=== PATIENT | female | born 1970 | race Hispanic/Latino ===

== ENCOUNTER 2018-03-20 20:26 | Emergency (ER) | payer BC ==
[2018-03-20 21:03] LABS: #Basophils 0.1 thou/uL (0.0-0.2); #Eosinphils 0.1 thou/uL (0.0-0.7); #Lymphocytes 2.7 thou/uL (1.20-3.40); #Monocytes 0.4 thou/uL (0.11-0.59); #Neutrophils 4.1 thou/uL (1.40-6.50); %Basophils 1.1 % (0.0-1.0); %Lymphocytes 36.8 % (21.0-51.0); %Monocytes 5.2 % (0.0-10.0); Mean Corpuscular HGB CONC 28.8 g/dL (32.0-36.0); Mean Corpuscular Hemoglobin 18.3 pg (27.0-31.0); Mean Corpuscular Volume 63.6 fL (78.0-98.0); Mean Platelet Volume 6.1 fL (7.4-10.4); Platelet Count 288 thou/uL (130-400); RBC Distribution Width 17.3 % (11.5-14.5); Red Blood Cell (RBC) Count 4.93 mill/uL (4.20-5.40); White Blood Cell (WBC) Count 7.4 thou/uL (4.8-10.8)
[2018-03-20 21:23] LABS: ALT (SGPT) 11 U/L (8-55); AST (SGOT) 25 U/L (5-34); Albumin 4.2 g/dL (3.5-5.0); Alkaline Phosphatase 71 U/L (40-150); Anion Gap 16 mmol/L (10-20); BUN (Urea Nitrogen) 12 mg/dL (7.0-18.7); Bilirubin, Total 0.5 mg/dL (0.2-1.2); Calc. Creatinine Clearance 0 mL/min (70-130); Calcium 9.6 mg/dL (7.8-10.44); Carbon Dioxide 24 mmol/L (22-29); Chloride 103 mmol/L (98-107); Estimated GFR-MDRD 79; Globulin 4.4 g/dL (2.4-3.5); Glucose 151 mg/dL (70-105); Potassium 3.3 mmol/L (3.5-5.1); Protein, Total 8.6 g/dL (6.0-8.3); Sodium 140 mmol/L (136-145)
[2018-03-20] MEDS ORDERED: Potassium Chloride 20 MEQ TAB ONE (22:12)
== END 2018-03-20 22:23 | disposition home or self-care (01) ==
LOC: ERS 20:26
DX: E87.6 Hypokalemia (principal); E11.9 Type 2 diabetes mellitus without complications; E78.5 Hyperlipidemia, unspecified; I10 Essential (primary) hypertension; Z79.899 Other long term (current) drug therapy; Z79.84 Long term (current) use of oral hypoglycemic drugs; Z79.82 Long term (current) use of aspirin
CPT/HCPCS: 36415; 83036; 84132; 84443; 85025; 93005

== ENCOUNTER 2022-06-28 16:25 | Inpatient (IN) | payer BC ==
[~2022-06-28 16:25] MED LIST: Iopamidol-370 76% 500 ML 1 ML ONE
[2022-06-28 17:05] LABS: Hemoglobin 12.8 g/dL (12.0-16.0); Mean Corpuscular HGB CONC 34.4 g/dL (32.0-36.0); Mean Corpuscular Hemoglobin 28.2 pg (27.0-31.0); Mean Platelet Volume 9.4 fL (7.4-10.4); Platelet Count 166 10x3/uL (130-400); RBC Distribution Width 12.7 % (11.5-14.5); Red Blood Cell (RBC) Count 4.55 mill/uL (4.20-5.40); White Blood Cell (WBC) Count 10.7 10x3/uL (4.8-10.8)
[2022-06-28 17:14] LABS: Prothrombin Time 13.9 sec (12.0-14.7)
[2022-06-28 17:15] LABS: PTT 25.8 sec (22.9-36.1)
[2022-06-28 17:21] LABS: Band 8 % (5-11); Lymphocytes 7 % (21-51); MDiff Complete? YES; Monocytes 4 % (0-10); Neutrophil 81 % (42-75); Platelet Morphology Comment Appears Adequate; RBC Morphology Normal
[2022-06-28 17:29] LABS: ALT (SGPT) 15 U/L (8-55); AST (SGOT) 16 U/L (5-34); Albumin 3.9 g/dL (3.5-5.0); Alkaline Phosphatase 111 U/L (40-110); Anion Gap 17 mmol/L (10-20); BUN (Urea Nitrogen) 11 mg/dL (9.8-20.1); Bilirubin, Total 1.4 mg/dL (0.2-1.2); Calc. Creatinine Clearance 0 mL/min (70-130); Calcium 8.9 mg/dL (7.8-10.44); Carbon Dioxide 25 mmol/L (22-29); Chloride 99 mmol/L (98-107); Estimated GFR 78; Globulin 4.2 g/dL (2.4-3.5); Glucose 275 mg/dL (70-105); Potassium 2.8 mmol/L (3.5-5.1); Protein, Total 8.1 g/dL (6.0-8.3); Sodium 138 mmol/L (136-145)
[2022-06-28 17:48] LABS: CKMB 0.5 ng/mL (0-6.6)
[2022-06-28] MEDS ORDERED: Ondansetron PF 4 MG/2 ML Vial ONE (18:14)
[2022-06-28] MEDS ORDERED: Morphine 4 MG/ML VIAL ONE (18:14)
[2022-06-28] MEDS ORDERED: Ketorolac Tromethamine 30 MG/ML VIAL ONE (18:49)
[2022-06-28] MEDS ORDERED: cefTRIAXone\\ROCEPHIN 2 GM VIAL ONE (19:22)
[2022-06-28] MEDS ORDERED: hydrALAZINE 20 MG/ML VIAL ONE (19:22)
[2022-06-28] MEDS ORDERED: Acetaminophen 325 MG TAB PO PRN (20:16)
[2022-06-28 20:17] LABS: SARS-CoV-2 NAA Rapid Test Not Detected (NotDetected)
[2022-06-28 20:22] LABS: Magnesium 1.2 mg/dL (1.6-2.6)
[2022-06-28] MEDS ORDERED: Magnesium 2 GM/50 ML BAG (IN WATER) ONE (20:32)
[2022-06-28 20:35] LABS: Bacteria/HPF None Seen HPF (None Seen); Bilirubin Negative (Negative); Blood, Urine Trace (Negative); Clarity Clear (Clear); Glucose, Urine (Dipstick) 50 mg/dL (Negative); Ketone, Urine Negative (Negative); Leukocyte 25 Leu/uL (Negative); Nitrite Negative (Negative); Protein, Urine (Dipstick) 100 mg/dL (Neg-Trace); Specific Gravity, Urine 1.021 (1.002-1.036); Squamous Epithelial None Seen HPF (0-3); Urobilinogen Normal mg/dL (Less than 2); pH, Urine 7.5 (5.0-9.0)
[2022-06-28] MEDS ORDERED: Potassium Chloride 20 MEQ TAB ONE (20:37)
[2022-06-28] MEDS ORDERED: Potassium Chloride 20 MEQ/100 ML PREMIX BAG ONE (20:37)
[2022-06-28] MEDS ORDERED: HumaLOG 300 UNITS/3 ML VIAL SC PRN (21:01)
[2022-06-28] MEDS ORDERED: Dextrose 5% in Water 1,000 ML IV PRN (21:01)
[2022-06-28] MEDS ORDERED: Dextrose 50% Abboject 50 ML SYRINGE SLOW IVP PRN (21:01)
[2022-06-28 21:39] LABS: Troponin I 0.063 ng/mL (< 0.028)
[2022-06-28] MEDS ORDERED: Amlodipine 5 MG TAB PO SCH (22:45)
[2022-06-28] MEDS ORDERED: Fioricet 325/50/40 mg Tablet PO PRN (22:46)
[2022-06-28 22:51] VITALS: BMI 28.0
[2022-06-28] MEDS: Ondansetron PF 4 MG/2 ML Vial IVP PRN (22:58)
[2022-06-28] MEDS: Morphine 4 MG/ML VIAL SLOW IVP PRN (22:59)
[2022-06-29 00:35] LABS: Hemoglobin A1c 9.5 % (4.0-6.0)
[2022-06-29 00:52] LABS: Troponin I 0.047 ng/mL (< 0.028)
[2022-06-29] MEDS ORDERED: Ketorolac Tromethamine 30 MG/ML VIAL IVP SCH (01:00)
[2022-06-29] MEDS ORDERED: Electrolyte Replacement Protocol 1 EACH FS SCH (03:45)
[2022-06-29] MEDS ORDERED: Sodium Chloride 0.9% 1,000 ML IV SCH ×2 (04:30→05:45)
[2022-06-29 04:53] LABS: Hemoglobin 12.4 g/dL (12.0-16.0); Mean Corpuscular HGB CONC 34.6 g/dL (32.0-36.0); Mean Corpuscular Hemoglobin 28.7 pg (27.0-31.0); Mean Corpuscular Volume 82.9 fl (78.0-98.0); Platelet Count 162 10x3/uL (130-400); RBC Distribution Width 12.8 % (11.5-14.5); White Blood Cell (WBC) Count 13.6 10x3/uL (4.8-10.8)
[2022-06-29 05:13] LABS: Anion Gap 13 mmol/L (10-20); BUN (Urea Nitrogen) 12 mg/dL (9.8-20.1); Calc. Creatinine Clearance 68 mL/min (70-130); Calcium 8.4 mg/dL (7.8-10.44); Carbon Dioxide 27 mmol/L (22-29); Cardiac Risk 3.5 (Less than 4.5); Chloride 97 mmol/L (98-107); Cholesterol 140 mg/dl (< 200 Desired); Estimated GFR 58; Glucose 341 mg/dL (70-105); HDL Cholesterol 40 mg/dL (>60 Neg Risk); LDL Cholesterol, Calculated 76 mg/dL; Magnesium 1.6 mg/dL (1.6-2.6); Sodium 134 mmol/L (136-145); Triglycerides 120 mg/dL (Less than 150)
[2022-06-29 05:21] LABS: Potassium 2.6 mmol/L (3.5-5.1)
[2022-06-29] MEDS ORDERED: Potassium Chloride 20 MEQ TAB PO SCH ×2 (05:30→06:00)
[2022-06-29 05:39] LABS: Band 6 % (5-11); Lymphocytes 4 % (21-51); MDiff Complete? YES; Monocytes 1 % (0-10); Neutrophil 89 % (42-75); Platelet Morphology Comment Appears Adequate; RBC Morphology Normal
[2022-06-29] MEDS: Cefepime 1 GM in Sodium Chloride 0.9% 100 ML IVPB SCH ×2 (05:45→17:15)
[2022-06-29] MEDS ORDERED: Magnesium 2 GM/50 ML(in water) 2 GM in Premix Bag 1 BAG IVPB SCH ×2 (06:00→08:00)
[2022-06-29] MEDS: Ondansetron PF 4 MG/2 ML Vial IVP PRN ×2 (06:09→13:45)
[2022-06-29] MEDS: Potassium Chloride 20 MEQ in Premix Bag 1 BAG IVPB SCH ×2 (06:16→10:48)
[2022-06-29] MEDS: HumaLOG 300 UNITS/3 ML VIAL SC PRN ×3 (06:27→18:13)
[2022-06-29] MEDS ORDERED: FLU VACC QS2022-23(6MOS UP)/PF 60 MCG/0.5 ML SYRINGE IM ONE (09:00)
[2022-06-29] MEDS ORDERED: Amlodipine 5 MG TAB PO SCH (09:00)
[2022-06-29] MEDS: Bacitracin 1 PK TOP SCH ×3 (11:02→20:36)
[2022-06-29 11:14] LABS: Potassium 3.5 mmol/L (3.5-5.1)
[2022-06-29] MEDS: Morphine 4 MG/ML VIAL SLOW IVP PRN (13:45)
[2022-06-29] MEDS ORDERED: hydrALAZINE 20 MG/ML VIAL SLOW IVP PRN (14:58)
[2022-06-29] MEDS ORDERED: NIFEdipine XL 60 MG TAB PO SCH (15:15)
[2022-06-29] MEDS: Potassium Chloride 20 MEQ in Lactated Ringer's 1,000 ML IV SCH (17:15)
[2022-06-29] MEDS: Acetaminophen 500 MG TAB PO SCH ×2 (17:16→20:35)
[2022-06-29] MEDS: Insulin Glargine 30 UNITS/0.3 ML VIAL SC SCH (20:35)
[2022-06-30] MEDS: Ondansetron PF 4 MG/2 ML Vial IVP PRN ×2 (02:48→17:20)
[2022-06-30] MEDS: Potassium Chloride 20 MEQ in Lactated Ringer's 1,000 ML IV SCH ×3 (03:51→20:31)
[2022-06-30] MEDS: Morphine 4 MG/ML VIAL SLOW IVP PRN (04:05)
[2022-06-30] MEDS ORDERED: Promethazine HCl 12.5 MG in Sodium Chloride 0.9% 100 ML IVPB SCH (04:45)
[2022-06-30 05:15] LABS: #Lymphocytes 0.8 thou/uL (1.20-3.40); #Monocytes 0.4 thou/uL (0.11-0.59); %Basophils 0.2 % (0.0-1.0); %Eosinophils 0.4 % (0.0-10.0); %Lymphocytes 9.1 % (21.0-51.0); %Monocytes 5.3 % (0.0-10.0); Hemoglobin 11.7 g/dL (12.0-16.0); Mean Corpuscular HGB CONC 33.5 g/dL (32.0-36.0); Mean Corpuscular Hemoglobin 28.4 pg (27.0-31.0); Mean Platelet Volume 9.9 fL (7.4-10.4); Platelet Count 144 10x3/uL (130-400); RBC Distribution Width 12.7 % (11.5-14.5); Red Blood Cell (RBC) Count 4.13 mill/uL (4.20-5.40); White Blood Cell (WBC) Count 8.2 10x3/uL (4.8-10.8)
[2022-06-30 05:35] LABS: Anion Gap 10 mmol/L (10-20); BUN (Urea Nitrogen) 13 mg/dL (9.8-20.1); Calc. Creatinine Clearance 82 mL/min (70-130); Calcium 8.6 mg/dL (7.8-10.44); Carbon Dioxide 26 mmol/L (22-29); Chloride 101 mmol/L (98-107); Estimated GFR 73; Glucose 249 mg/dL (70-105); Magnesium 1.8 mg/dL (1.6-2.6); Potassium 3.2 mmol/L (3.5-5.1); Sodium 134 mmol/L (136-145)
[2022-06-30] MEDS: cefTRIAXone\\ROCEPHIN 2 GM in Sodium Chloride 0.9% 100 ML IVPB SCH (06:26)
[2022-06-30] MEDS: HumaLOG 300 UNITS/3 ML VIAL SC PRN ×3 (07:38→17:22)
[2022-06-30] MEDS ORDERED: Potassium Chloride 20 MEQ TAB PO SCH (08:00)
[2022-06-30] MEDS ORDERED: Magnesium 2 GM/50 ML(in water) 2 GM in Premix Bag 1 BAG IVPB SCH (08:00)
[2022-06-30] MEDS: Acetaminophen 500 MG TAB PO SCH ×3 (08:49→20:30)
[2022-06-30] MEDS: Bacitracin 1 PK TOP SCH ×3 (08:51→20:31)
[2022-06-30] MEDS: NIFEdipine XL 60 MG TAB PO SCH (08:52)
[2022-06-30] MEDS: oxyCODONE 5 MG TAB PO PRN (17:20)
[2022-06-30] MEDS: Insulin Glargine 30 UNITS/0.3 ML VIAL SC SCH (20:30)
[2022-07-01 04:20] LABS: #Lymphocytes 1.4 thou/uL (1.20-3.40); #Monocytes 0.4 thou/uL (0.11-0.59); #Neutrophils 2.5 thou/uL (1.40-6.50); %Basophils 0.6 % (0.0-1.0); %Lymphocytes 31.6 % (21.0-51.0); %Monocytes 9.9 % (0.0-10.0); %Neutrophils 56.9 % (42.0-75.0); Hemoglobin 11.7 g/dL (12.0-16.0); Mean Corpuscular HGB CONC 33.9 g/dL (32.0-36.0); Mean Corpuscular Hemoglobin 28.8 pg (27.0-31.0); Mean Corpuscular Volume 85.2 fl (78.0-98.0); Mean Platelet Volume 9.4 fL (7.4-10.4); Platelet Count 141 10x3/uL (130-400); RBC Distribution Width 12.7 % (11.5-14.5); Red Blood Cell (RBC) Count 4.05 mill/uL (4.20-5.40); White Blood Cell (WBC) Count 4.4 10x3/uL (4.8-10.8)
[2022-07-01 04:44] LABS: Anion Gap 11 mmol/L (10-20); BUN (Urea Nitrogen) 12 mg/dL (9.8-20.1); Calc. Creatinine Clearance 93 mL/min (70-130); Calcium 8.6 mg/dL (7.8-10.44); Carbon Dioxide 26 mmol/L (22-29); Chloride 105 mmol/L (98-107); Estimated GFR 84; Glucose 144 mg/dL (70-105); Magnesium 1.9 mg/dL (1.6-2.6); Potassium 3.4 mmol/L (3.5-5.1); Sodium 139 mmol/L (136-145)
[2022-07-01] MEDS: oxyCODONE 5 MG TAB PO PRN (05:21)
[2022-07-01] MEDS: cefTRIAXone\\ROCEPHIN 2 GM in Sodium Chloride 0.9% 100 ML IVPB SCH (05:41)
[2022-07-01] MEDS ORDERED: Magnesium 2 GM/50 ML(in water) 2 GM in Premix Bag 1 BAG IVPB SCH (08:00)
[2022-07-01] MEDS ORDERED: Potassium Chloride 20 MEQ TAB PO SCH ×2 (08:00→10:00)
[2022-07-01] MEDS: Acetaminophen 500 MG TAB PO SCH (08:55)
[2022-07-01] MEDS: Bacitracin 1 PK TOP SCH (08:55)
[2022-07-01] MEDS: Ondansetron PF 4 MG/2 ML Vial IVP PRN (08:56)
[2022-07-01] MEDS: NIFEdipine XL 60 MG TAB PO SCH (08:56)
[2022-07-01] MEDS: Potassium Chloride 20 MEQ in Lactated Ringer's 1,000 ML IV SCH (08:57)
[2022-07-01] MEDS: HumaLOG 300 UNITS/3 ML VIAL SC PRN (09:11)
[2022-07-01 11:55] VITALS: BP 146/74; TEMP 98.8
== END 2022-07-01 14:00 | disposition home or self-care (01) | DRG 872 ==
LOC: ERS 16:25 → 2NO 20:17 → OBSVTOIN 06-29 15:10
PROVIDERS: ADMIT Internal Medicine; ATTEND Internal Medicine
DX: A41.51 Sepsis due to Escherichia coli [E. coli] (principal); N10 Acute pyelonephritis; Z20.822 Contact with and (suspected) exposure to COVID-19; I10 Essential (primary) hypertension; E11.9 Type 2 diabetes mellitus without complications; E87.6 Hypokalemia; E83.42 Hypomagnesemia; E78.5 Hyperlipidemia, unspecified; E78.00 Pure hypercholesterolemia, unspecified; N83.202 Unspecified ovarian cyst, left side; D25.9 Leiomyoma of uterus, unspecified; B96.20 Unspecified Escherichia coli [E. coli] as the cause of diseases classified elsewhere
CPT/HCPCS: 36415; 36416; 71045; 74177; 76856; 80048; 80053; 80061; 81003; 81015; 82553; 83036; 83605; 83735; 83880; 84484; 85025; 85610; 85730; 87040; 87077; 87086; 87149; 87186; 93005; 93976; 96361; 96365; 96367; 96372; 96375; 96376; G0378; J0360; J0692; J0696; J1650; J1815; J1885; J2270; J2405; J2550; J3475; J3480; J3490; J7050; J7120; Q9967

== ENCOUNTER 2022-07-17 14:55 | Inpatient (IN) | payer BC ==
[2022-07-17] MEDS ORDERED: Ibuprofen 800 MG TAB ONE (15:51)
[2022-07-17] MEDS ORDERED: HYDROcodone/Acetaminophen 5/325 mg Tablet ONE (15:51)
[2022-07-17 16:28] LABS: #Lymphocytes 0.9 thou/uL (1.20-3.40); #Monocytes 0.2 thou/uL (0.11-0.59); #Neutrophils 7.6 thou/uL (1.40-6.50); %Basophils 0.2 % (0.0-1.0); %Eosinophils 0.1 % (0.0-10.0); %Lymphocytes 9.8 % (21.0-51.0); %Monocytes 2.4 % (0.0-10.0); %Neutrophils 87.6 % (42.0-75.0); Hemoglobin 12.2 g/dL (12.0-16.0); Mean Corpuscular HGB CONC 32.9 g/dL (32.0-36.0); Mean Corpuscular Hemoglobin 27.9 pg (27.0-31.0); Mean Corpuscular Volume 84.9 fl (78.0-98.0); Mean Platelet Volume 8.8 fL (7.4-10.4); Platelet Count 209 10x3/uL (130-400); RBC Distribution Width 12.4 % (11.5-14.5); Red Blood Cell (RBC) Count 4.38 mill/uL (4.20-5.40); White Blood Cell (WBC) Count 8.7 10x3/uL (4.8-10.8)
[2022-07-17] MEDS ORDERED: CEFAZOLIN 2 GM in Sodium Chloride 0.9% 100 ML IVPB SCH (16:30)
[2022-07-17 16:34] LABS: PTT 29.8 sec (22.9-36.1); Prothrombin Time 13.2 sec (12.0-14.7)
[2022-07-17] MEDS ORDERED: Ipratropium/Albuterol 3 ML NEB NEB PRN (16:39)
[2022-07-17] MEDS ORDERED: Ondansetron PF 4 MG/2 ML Vial IVP PRN (16:39)
[2022-07-17] MEDS ORDERED: Sodium Chloride 0.9% 1,000 ML IV SCH (16:45)
[2022-07-17] MEDS ORDERED: traMADol HCl 50 MG TAB PO PRN (16:46)
[2022-07-17] MEDS ORDERED: Morphine 2 MG/ML VIAL SLOW IVP PRN (16:48)
[2022-07-17 16:49] LABS: ALT (SGPT) 14 U/L (8-55); AST (SGOT) 18 U/L (5-34); Albumin 3.9 g/dL (3.5-5.0); Alkaline Phosphatase 76 U/L (40-110); Anion Gap 10 mmol/L (10-20); BUN (Urea Nitrogen) 10 mg/dL (9.8-20.1); Bilirubin, Total 0.8 mg/dL (0.2-1.2); Calc. Creatinine Clearance 0 mL/min (70-130); Carbon Dioxide 28 mmol/L (22-29); Chloride 106 mmol/L (98-107); Estimated GFR 98; Glucose 126 mg/dL (70-105); Potassium 2.7 mmol/L (3.5-5.1); Protein, Total 7.9 g/dL (6.0-8.3); Sodium 141 mmol/L (136-145)
[2022-07-17] MEDS ORDERED: Dextrose 50% Abboject 50 ML SYRINGE SLOW IVP PRN (17:17)
[2022-07-17] MEDS ORDERED: Insulin Regular 300 UNITS/3 ML VIAL SC PRN (17:17)
[2022-07-17] MEDS ORDERED: Dextrose 5% in Water 1,000 ML IV PRN (17:17)
[2022-07-17] MEDS ORDERED: Potassium Chloride 20 MEQ TAB ONE (17:47)
[2022-07-17] MEDS ORDERED: HYDROmorphone 0.5 MG/0.5 ML SYRINGE ONE (17:48)
[2022-07-17] MEDS ORDERED: Morphine 4 MG/ML VIAL ONE (17:48)
[2022-07-17] MEDS ORDERED: Ketorolac Tromethamine 30 MG/ML VIAL ONE (17:48)
[2022-07-17] MEDS ORDERED: Labetalol HCl 100 MG/20 ML VIAL SLOW IVP PRN (18:09)
[2022-07-17] MEDS ORDERED: Labetalol HCl 100 MG/20 ML VIAL ONE (18:14)
[2022-07-17] MEDS ORDERED: Amlodipine 5 MG TAB ONE (18:14)
[2022-07-17 19:20] LABS: SARS-CoV-2 NAA Rapid Test Not Detected (NotDetected)
[2022-07-17 21:24] VITALS: BMI 28.5
[2022-07-17] MEDS: Senokot S 8.6-50 MG TAB PO SCH (21:39)
[2022-07-17] MEDS: Famotidine 20 MG TAB PO SCH (21:39)
[2022-07-17] MEDS: Gabapentin 300 MG CAP PO SCH (21:39)
[2022-07-17] MEDS: Cyclobenzaprine 10 MG TAB PO PRN (21:39)
[2022-07-17] MEDS: traMADol HCl 50 MG TAB PO SCH (21:42)
[2022-07-17] MEDS: Lactated Ringer's 1,000 ML IV SCH (21:42)
[2022-07-17] MEDS: Acetaminophen 500 MG TAB PO SCH (21:42)
[2022-07-17] MEDS: Amlodipine 5 MG TAB PO SCH (22:54)
[2022-07-18] MEDS: Acetaminophen 500 MG TAB PO SCH ×5 (00:21→23:38)
[2022-07-18] MEDS: traMADol HCl 50 MG TAB PO SCH ×5 (00:21→23:38)
[2022-07-18] MEDS: Lactated Ringer's 1,000 ML IV SCH (05:47)
[2022-07-18] MEDS: Gabapentin 300 MG CAP PO SCH ×3 (07:47→21:05)
[2022-07-18] MEDS: Potassium Chloride 20 MEQ in Premix Bag 1 BAG IVPB SCH ×2 (07:47→13:12)
[2022-07-18] MEDS: Famotidine 20 MG TAB PO SCH ×2 (07:48→21:05)
[2022-07-18] MEDS: Polyethylene Glycol 3350 17 GM Packet PO SCH (08:12)
[2022-07-18] MEDS: Senokot S 8.6-50 MG TAB PO SCH ×2 (08:13→21:06)
[2022-07-18 08:35] LABS: Anion Gap 11 mmol/L (10-20); BUN (Urea Nitrogen) 9 mg/dL (9.8-20.1); Calc. Creatinine Clearance 111 mL/min (70-130); Calcium 8.5 mg/dL (7.8-10.44); Carbon Dioxide 28 mmol/L (22-29); Chloride 106 mmol/L (98-107); Estimated GFR 103; Glucose 83 mg/dL (70-105); Potassium 3.1 mmol/L (3.5-5.1); Sodium 142 mmol/L (136-145)
[2022-07-18] MEDS ORDERED: Magnesium 2 GM/50 ML(in water) 2 GM in Premix Bag 1 BAG IVPB SCH (09:00)
[2022-07-18] MEDS ORDERED: fentaNYL PF 100 MCG/2 ML SYRINGE ONE ×2 (09:53→12:04)
[2022-07-18] MEDS ORDERED: Morphine 4 MG/ML VIAL ONE (12:04)
[2022-07-18] MEDS ORDERED: Morphine 2 MG/ML VIAL ONE (12:14)
[2022-07-18] MEDS ORDERED: hydrALAZINE 20 MG/ML VIAL ONE (12:21)
[2022-07-18] MEDS: hydrALAZINE 20 MG/ML VIAL SLOW IVP PRN (12:23)
[2022-07-18] MEDS ORDERED: Fentanyl 100 MCG/2 ML VIAL ONE (12:28)
[2022-07-18] MEDS ORDERED: Morphine Sulfate 2 MG/ML SYRINGE SLOW IVP PRN (13:15)
[2022-07-18] MEDS ORDERED: Promethazine HCl 25 MG/ML VIAL IM/IV PRN (13:15)
[2022-07-18] MEDS ORDERED: Ondansetron HCl/PF 4 MG/2 ML Vial IVP PRN (13:15)
[2022-07-18] MEDS ORDERED: PACU-Morphine 4MG/ML VIAL SLOW IVP PRN (13:15)
[2022-07-18] MEDS ORDERED: Lisinopril 10 MG TAB PO SCH ×3 (13:20→21:00)
[2022-07-18] MEDS ORDERED: Lidocaine 1% PF 5 ML VIAL ONE (14:58)
[2022-07-18] MEDS ORDERED: Ondansetron PF 4 MG/2 ML Vial ONE (14:58)
[2022-07-18] MEDS ORDERED: Dexamethasone 20 MG/5 ML VIAL ONE (14:58)
[2022-07-18] MEDS ORDERED: PROPOFOL 200 MG/20 ML VIAL ONE (14:58)
[2022-07-18] MEDS: CEFAZOLIN 2 GM in Sodium Chloride 0.9% 100 ML IVPB SCH (17:30)
[2022-07-18] MEDS: Insulin Regular 300 UNITS/3 ML VIAL SC PRN (18:25)
[2022-07-18] MEDS: Lisinopril 10 MG TAB PO SCH (21:04)
[2022-07-18] MEDS: Amlodipine 5 MG TAB PO SCH (21:07)
[2022-07-19] MEDS: CEFAZOLIN 2 GM in Sodium Chloride 0.9% 100 ML IVPB SCH ×2 (02:35→11:19)
[2022-07-19] MEDS: Acetaminophen 500 MG TAB PO SCH ×4 (05:30→23:47)
[2022-07-19] MEDS: traMADol HCl 50 MG TAB PO SCH ×3 (05:31→21:37)
[2022-07-19] MEDS: Insulin Regular 300 UNITS/3 ML VIAL SC PRN (05:54)
[2022-07-19 05:56] LABS: #Lymphocytes 1.1 thou/uL (1.20-3.40); #Monocytes 0.5 thou/uL (0.11-0.59); #Neutrophils 6.6 thou/uL (1.40-6.50); %Basophils 0.2 % (0.0-1.0); %Eosinophils 0.1 % (0.0-10.0); %Lymphocytes 12.9 % (21.0-51.0); %Monocytes 6.1 % (0.0-10.0); %Neutrophils 80.7 % (42.0-75.0); Hemoglobin 10.4 g/dL (12.0-16.0); Mean Corpuscular Hemoglobin 28.5 pg (27.0-31.0); Mean Corpuscular Volume 86.2 fl (78.0-98.0); Mean Platelet Volume 9.5 fL (7.4-10.4); Platelet Count 164 10x3/uL (130-400); RBC Distribution Width 12.6 % (11.5-14.5); Red Blood Cell (RBC) Count 3.63 mill/uL (4.20-5.40); White Blood Cell (WBC) Count 8.2 10x3/uL (4.8-10.8)
[2022-07-19 06:14] LABS: Anion Gap 13 mmol/L (10-20); BUN (Urea Nitrogen) 21 mg/dL (9.8-20.1); Calc. Creatinine Clearance 60 mL/min (70-130); Calcium 8.4 mg/dL (7.8-10.44); Carbon Dioxide 23 mmol/L (22-29); Chloride 104 mmol/L (98-107); Estimated GFR 49; Glucose 159 mg/dL (70-105); Magnesium 2.5 mg/dL (1.6-2.6); Phosphorus 4.6 mg/dL (2.3-4.7); Potassium 3.4 mmol/L (3.5-5.1); Sodium 137 mmol/L (136-145)
[2022-07-19] MEDS: Gabapentin 300 MG CAP PO SCH ×3 (09:11→20:02)
[2022-07-19] MEDS: Lisinopril 10 MG TAB PO SCH ×2 (09:12→20:03)
[2022-07-19] MEDS: Polyethylene Glycol 3350 17 GM Packet PO SCH (09:13)
[2022-07-19] MEDS: Senokot S 8.6-50 MG TAB PO SCH ×2 (09:13→20:06)
[2022-07-19] MEDS: Cyclobenzaprine 10 MG TAB PO PRN ×2 (11:20→20:06)
[2022-07-19] MEDS ORDERED: Amlodipine 5 MG TAB PO SCH ×2 (12:00→13:00)
[2022-07-19] MEDS ORDERED: Lactated Ringer's 1,000 ML IV SCH (12:30)
[2022-07-19] MEDS: hydrALAZINE 20 MG/ML VIAL SLOW IVP PRN (12:54)
[2022-07-19 13:41] LABS: Anion Gap 12 mmol/L (10-20); BUN (Urea Nitrogen) 20 mg/dL (9.8-20.1); Calc. Creatinine Clearance 81 mL/min (70-130); Calcium 8.5 mg/dL (7.8-10.44); Carbon Dioxide 28 mmol/L (22-29); Chloride 103 mmol/L (98-107); Estimated GFR 70; Glucose 122 mg/dL (70-105); Potassium 3.5 mmol/L (3.5-5.1); Sodium 139 mmol/L (136-145)
[2022-07-20] MEDS: hydrALAZINE 20 MG/ML VIAL SLOW IVP PRN (00:43)
[2022-07-20] MEDS: Cyclobenzaprine 10 MG TAB PO PRN (03:45)
[2022-07-20] MEDS: Acetaminophen 500 MG TAB PO SCH ×3 (05:16→16:57)
[2022-07-20] MEDS: traMADol HCl 50 MG TAB PO SCH ×3 (05:17→16:56)
[2022-07-20 06:58] LABS: #Eosinphils 0.1 thou/uL (0.0-0.7); #Lymphocytes 1.9 thou/uL (1.20-3.40); #Monocytes 0.4 thou/uL (0.11-0.59); #Neutrophils 4.3 thou/uL (1.40-6.50); %Basophils 0.2 % (0.0-1.0); %Eosinophils 1.8 % (0.0-10.0); %Lymphocytes 28.1 % (21.0-51.0); %Monocytes 6.4 % (0.0-10.0); %Neutrophils 63.4 % (42.0-75.0); Hemoglobin 10.9 g/dL (12.0-16.0); Mean Corpuscular HGB CONC 31.8 g/dL (32.0-36.0); Mean Corpuscular Hemoglobin 27.8 pg (27.0-31.0); Mean Corpuscular Volume 87.5 fl (78.0-98.0); Mean Platelet Volume 9.3 fL (7.4-10.4); Platelet Count 171 10x3/uL (130-400); RBC Distribution Width 12.8 % (11.5-14.5); White Blood Cell (WBC) Count 6.7 10x3/uL (4.8-10.8)
[2022-07-20 07:24] LABS: Anion Gap 12 mmol/L (10-20); BUN (Urea Nitrogen) 13 mg/dL (9.8-20.1); Calc. Creatinine Clearance 103 mL/min (70-130); Calcium 8.5 mg/dL (7.8-10.44); Carbon Dioxide 26 mmol/L (22-29); Chloride 106 mmol/L (98-107); Estimated GFR 93; Glucose 129 mg/dL (70-105); Magnesium 1.8 mg/dL (1.6-2.6); Phosphorus 2.6 mg/dL (2.3-4.7); Potassium 2.9 mmol/L (3.5-5.1); Sodium 141 mmol/L (136-145)
[2022-07-20] MEDS ORDERED: Potassium Phosphate 30 MMOL, Magnesium Sulfate 2 GM in Sodium Chloride 0.9% 250 ML 250 ML IVPB SCH (07:45)
[2022-07-20] MEDS ORDERED: Magnesium 2 GM/50 ML(in water) 2 GM in Premix Bag 1 BAG IVPB SCH (07:45)
[2022-07-20] MEDS: Gabapentin 300 MG CAP PO SCH ×2 (08:32→16:53)
[2022-07-20] MEDS: Polyethylene Glycol 3350 17 GM Packet PO SCH (08:32)
[2022-07-20] MEDS: Lisinopril 10 MG TAB PO SCH (08:32)
[2022-07-20] MEDS: Senokot S 8.6-50 MG TAB PO SCH (08:32)
[2022-07-20 12:38] VITALS: BP 132/69; TEMP 98.1
[2022-07-20] MEDS ORDERED: Amlodipine 5 MG TAB PO SCH (21:00)
== END 2022-07-20 16:50 | disposition home or self-care (01) | DRG 493 ==
LOC: ERS 14:55 → SJJU 16:39
PROVIDERS: ADMIT Surgery; ATTEND Surgery
PROC: 0QSG04Z Reposition Right Tibia with Internal Fixation Device, Open Approach (ICD-10-PCS; principal; 2022-07-18)
DX: S82.141A Displaced bicondylar fracture of right tibia, initial encounter for closed fracture (principal); N39.0 Urinary tract infection, site not specified; Z20.822 Contact with and (suspected) exposure to COVID-19; W10.9XXA Fall (on) (from) unspecified stairs and steps, initial encounter; E66.9 Obesity, unspecified; E11.9 Type 2 diabetes mellitus without complications; I10 Essential (primary) hypertension; Z79.899 Other long term (current) drug therapy; Z68.28 Body mass index [BMI] 28.0-28.9, adult
CPT/HCPCS: 36415; 36416; 71045; 80048; 80053; 83735; 83880; 84100; 85025; 85610; 85730; 86850; 86900; 86901; 93005; 96374; 96375; C1713; G0390; J0360; J1100; J1170; J1650; J1815; J1885; J2270; J2272; J2405; J2704; J3010; J3475; J3480; J3490; J7050; J7120; U0002